=== PATIENT | male | born 1990 | race Caucasian/White ===

== ENCOUNTER → 2017-10-13 07:42 | Outpatient (CLI) | payer OTHER, SELFPAY ==
--- NOTE | 2017-10-13 07:47 | US_ITS ---
US abdomen complete HISTORY: Elevated liver enzymes ITS.REASON: ABNORMAL LIVER FUNCTION ORDERING PHYSICIAN: Ree Coleman PATIENT AGE: 26 years COMPARISON: None FINDINGS: PANCREAS:Unremarkable. No obvious mass or abnormal fluid collection. No ductal dilatation LIVER:No focal liver lesions demonstrated. Homogeneous echogenicity. No intrahepatic biliary ductal dilatation evident. There is appropriate directional blood flow within a nondilated portal vein. There is slight increased echogenicity of the liver which may represent hepatic steatosis. Common bile duct is normal at 4 mm. No intrahepatic biliary dilatation RIGHT KIDNEY:There are multiple right renal cysts measuring up to 4 cm in the upper pole. No hydronephrosis LEFT KIDNEY:Multiple left renal cyst consistent with polycystic kidney disease. No hydronephrosis GALLBLADDER:No gallstones, gallbladder wall thickening, pericholecystic fluid, or biliary dilatation. AORTA:No evidence of aneurysmal dilatation. SPLEEN:Borderline splenomegaly at 14 cm ASCITES:None demonstrated. IMPRESSION: 1. Borderline splenomegaly with mild fatty liver 2. Polycystic kidney disease 3. Otherwise negative abdominal ultrasound
[2017-10-13 09:23] LABS: Basophils # 0.1 K/mm3 (0-0.2); Basophils % 1.4 % (0.1-2.0); Eosinophils # 0.2 K/mm3 (0.0-0.4); Eosinophils % 3.9 % (0.1-12.0); Hematocrit 46.4 % (42.0-52.0); Hemoglobin 15.8 g/dL (14.1-18.0); Lymphocytes # 1.5 K/mm3 (0.7-4.5); Lymphocytes % 34.2 K/mm3 (10-50); Mean Corpuscular HGB Conc 34.2 g/dL (31.8-35.4); Mean Corpuscular Hemoglobin 30.2 pg (27.0-31.2); Mean Corpuscular Volume 88.5 fl (80-94); Mean Platelet Volume 8.4 fl (7.4-10.4); Monocytes # 0.2 K/mm3 (0.1-1.0); Monocytes % 5.4 % (1.7-9.3); Neutrophils # 2.5 K/mm3 (1.8-7.8); Neutrophils % 55.1 % (37.0-80.0); Platelet Count 195 K/mm3 (142-424); Red Blood Count 5.24 M/mm3 (4.60-6.20); Red Cell Distribution Width 12.7 % (11.5-17.5); White Blood Count 4.5 K/mm3 (4.8-10.8)
[2017-10-13 10:38] LABS: Alanine Aminotransferase 198 U/L (12-78); Albumin Level 4.2 gm/dL (3.4-5.0); Albumin/Globulin Ratio 1.5 (1.1-1.8); Alkaline Phosphatase 77 U/L (46-116); Anion Gap 12.5 mEq/L (5-15); Aspartate Amino Transferase 79 U/L (15-37); Bilirubin,Total 0.8 mg/dL (0.2-1.0); Blood Urea Nitrogen 17 mg/dL (7-18); Calcium 8.7 mg/dL (8.5-10.1); Carbon Dioxide 28 mmol/L (21.0-32.0); Chloride 108 mmol/L (98-107); Creatinine,Serum 0.93 mg/dL (0.70-1.30); Estimated Glomerular Filt Rate 99 ml/min (>60); Ferritin 381 ng/mL (8-388); GFR (African American) 120 ML/MIN (>60); Globulin 2.8 gm/dl (1.3-3.2); Glucose 99 mg/dL (74-106); Potassium 4.5 mmoL/L (3.5-5.1); Sodium 144 mmol/L (136-145)
[2017-10-14 08:21] LABS: Hep A Ab, IgM Negative (Negative); Hepatitis B Core Antibody IgM Negative (Negative); Hepatitis B Surface Antigen Negative (Negative); Iron 127 ug/dL (38-169); Iron Saturation 46 % (15-55); UIBC 151 ug/dL (111-343)
[2017-10-14 18:29] LABS: Hepatitis C Antibody <0.1 s/co ratio (0.0-0.9); Mitochondrial (M2) Antibody 29.4 Units (0.0-20.0)
[2017-10-17 08:29] LABS: Antinuclear Antibodies, IFA Negative (.); Liver-Kidney Microsomal Ab <1.0 Units (0.0-20.0)
== END ==
PROVIDERS: PCP Family Medicine; Visit Provider Nurse Practitioner Acute Care
DX: R94.5 Abnormal results of liver function studies (principal)
CPT/HCPCS: 36415; 76700; 80053; 80074; 82728; 83540; 83550; 85025; 86038; 86256; 86376

== ENCOUNTER → 2017-10-24 10:29 | Outpatient (CLI) | payer OTHER, SELFPAY ==
[2017-10-25 11:18] LABS: Ceruloplasmin 18.7 mg/dL (16.0-31.0)
[2017-10-27 07:19] LABS: ALT (SGPT) P5P 131 IU/L (0-55); Alpha 2-Macroglobulins, Qn 208 mg/dL (110-276); Apolipoprotein A-1 87 mg/dL (101-178); Bilirubin, Total 0.5 mg/dL (0.0-1.2); Fibrosis Score 0.32 (0.00-0.21); Fibrosis Stage F1-F2 (.); GGT 67 IU/L (0-65); Haptoglobin 120 mg/dL (34-200); Necroinflammat Activity Grade A3-Severe activity (.); Necroinflammat Activity Score 0.68 (0.00-0.17)
[2017-10-27 18:27] LABS: Actin (Smooth Muscle) Antibody 3 Units (0-19); Immunoglobulin G, Qn 866 mg/dL (700-1600)
[2017-10-27 18:28] LABS: Deamidated Gliadin Abs, IgA 73 units (0-19); Deamidated Gliadin Abs, IgG 103 units (0-19); Endomysial IgA Antibody Positive (Negative); Tissue Transglutaminase IgA Ab 4 U/mL (0-3); Tissue Transglutaminase IgG Ab <2 U/mL (0-5)
[2017-10-27 19:10] LABS: Reticulin IgA Antibody Negative titer (Neg:<1:2.5)
== END ==
PROVIDERS: PCP Family Medicine; Visit Provider Nurse Practitioner Acute Care
DX: R94.5 Abnormal results of liver function studies (principal)
CPT/HCPCS: 36415; 81256; 82390; 82784; 83516; 86255; 86256

== ENCOUNTER → 2017-12-25 10:16 | Outpatient (POV) | payer OTHER, SELFPAY | PROVIDERS: Visit Provider Nurse Practitioner Acute Care | DX: Z00.00 Encounter for general adult medical examination without abnormal findings (principal) ==

== ENCOUNTER 2019-11-27 13:05 | Emergency (ER) | payer OTHER, SELFPAY ==
[2019-11-27 13:25] VITALS: BP 163/85; PULSE 100; RESP 18; TEMP 36.7; O2SAT 98; BMI 26.9
--- NOTE | 2019-11-27 13:34 | HMH.EDUTC ---
[facility] [place] Disposition Clinical Impression: Sinusitis Qualifiers: Sinusitis location: unspecified location Chronicity: unspecified Qualified Code(s): J32.9 - Chronic sinusitis, unspecified Disposition: Home, Self-Care Condition on Discharge: Good Instructions: Sinusitis, Sinus Headache, DI for Sinusitis, Azithromycin, Methylprednisolone Additional Instructions: *Monitor Temp, Over the counter Motrin or Tylenol as directed/as needed Tylenol every 4 hours and Motrin every 6 hours (as long as your family doctor has told you that you can take it) for fever or pain. and straight to ER if unable to lower temp less than 101.0 after medication given *Warm salt water gargles may help to soothe the throat *Throat Lozenges *Warm fluids like tea with honey may help to soothe the throat *Sleep elevated *Humidifier/Vaporizer Follow up IMMEDIATELY for new or worsening symptoms or no Noticeable improvement over the next 48-72 hours. 911 for difficulty breathing or swallowing You was tested for today for COVID19 your test result should be back later this evening, you may call back later this evening to see if your test results are back and the result You was given a handout with instructions for Self Quarantine and Self isolation for while you wait on test results and what to do if they are positive Prescriptions: Fluticasone Propionate [Flonase 50mcg nasal spray 16gm] 1 spr NS DAILY #1 bottle Transmission Status: Pending to Stand In methylPREDNISolone [Medrol 4mg tab] 4 mg PO DIRECTED #21 tab Transmission Status: Pending to [facility] Azithromycin [Z-Du 250mg Tab] 250 mg PO DIRECTED #6 tab Transmission Status: Pending to Stand In Referrals: Leo Schumacher MD [Primary Care Provider] - As needed Forms: Work/School Release Time of Disposition: 13:39 Medical Decision Making - Aidan Inquiry Pt receiving controlled substance: No Aidan was queried for this patient: No Vital Signs: 11/27/19 13:25 Temperature 98.1 F Temperature Source Oral Pulse Rate [Radial] 100 H Respiratory Rate 18 Blood Pressure [Right Arm] 163/85 H Blood Pressure Mean [Right Arm] 111 Blood Pressure Source [Right Arm] Automatic Cuff Blood Pressure Position [Right Arm] Sitting 02 Sat by Pulse Oximetry 98 Oxygen Delivery Method Room Air Orders (Tests/Meds): ORDERS Category Date Time Status Full Resp Panel w/COVID ([facility]) Routine Lab 11/27/19 13:28 Ordered [facility] [place] HPI - General Stated complaint: congestion, lung pain Time Seen by Provider: 11/27/19 13:34 Mode of Arrival: Ambulatory Source of Information: Patient Limitations: No Limitations Description of Symptoms (Recalled from Triage Doc. by RN): wants covid test. HEENT Symptoms (Recalled from RN notes): No Resp Symptoms (Recalled from RN notes): No Skin Symptoms (Recalled from RN notes): No MS Symptoms (Recalled from RN notes): No Functional Status (Recalled from RN notes): wnl - History of Present Illness Provider Complaint: Patient states that he came in today to get a COVID test States that he has been having sinus pain and pressure for over a week and feels like it is trying to move into his chest States that feels like it did before when he had a sinus infection but has elderly aunt coming and wanted to make sure that he didnt have COVID - Related Data Home Medications Medication Instructions Recorded Confirmed lisinopril 5 mg tablet 5 mg PO DAILY 04/28/19 04/28/19 Previous Rx's Medication Instructions Recorded triamcinolone acetonide 0.5 % 1 applic TOPICAL BID 7 Days #15 g 04/28/19 topical cream Azithromycin [Z-Du 250mg Tab] 250 mg PO DIRECTED #6 tab 11/27/19 Fluticasone Propionate [Flonase 1 spr NS DAILY #1 bottle 11/27/19 50mcg nasal spray 16gm] methylPREDNISolone [Medrol 4mg 4 mg PO DIRECTED #21 tab 11/27/19 tab] Allergies Allergy/AdvReac Type Severity Reaction Status Date / Time INGREDIENT: NO KNOW
[2019-11-27 13:51] VITALS: BP 163/85; PULSE 100; RESP 18; TEMP 36.7; O2SAT 98
== END 2019-11-27 13:52 | disposition home or self-care (01) ==
PROVIDERS: Emergency Provider Nurse Practitioner; PCP Family Medicine
DX: J32.9 Chronic sinusitis, unspecified (principal); Z20.828 Contact with and (suspected) exposure to other viral communicable diseases; I10 Essential (primary) hypertension; F17.290 Nicotine dependence, other tobacco product, uncomplicated
CPT/HCPCS: 99201; U0003

== ENCOUNTER → 2020-01-03 16:01 | Outpatient (POV) | payer OTHER, SELFPAY | PROVIDERS: Visit Provider Internal Medicine Nephrology | DX: Z00.00 Encounter for general adult medical examination without abnormal findings (principal) ==

== ENCOUNTER → 2020-12-24 11:34 | Outpatient (CLI) | payer OTHER, SELFPAY | PROVIDERS: PCP Family Medicine; Visit Provider Nurse Practitioner | DX: Z20.822 Contact with and (suspected) exposure to COVID-19 (principal) | CPT/HCPCS: C9803; U0003; U0005 ==

== ENCOUNTER → 2021-01-04 08:19 | Outpatient (CLI) | payer OTHER, SELFPAY | PROVIDERS: PCP Family Medicine; Visit Provider Nurse Practitioner | DX: Z20.822 Contact with and (suspected) exposure to COVID-19 (principal) | CPT/HCPCS: C9803; U0003; U0005 ==

== ENCOUNTER → 2021-04-01 08:13 | Outpatient (CLI) | payer OTHER, SELFPAY | PROVIDERS: PCP Family Medicine; Visit Provider Nurse Practitioner | DX: Z20.822 Contact with and (suspected) exposure to COVID-19 (principal) | CPT/HCPCS: C9803; U0003; U0005 ==

== ENCOUNTER → 2021-07-02 13:41 | Outpatient (POV) | payer OTHER, SELFPAY | PROVIDERS: Visit Provider Internal Medicine Nephrology | DX: Z00.00 Encounter for general adult medical examination without abnormal findings (principal) ==

== ENCOUNTER 2021-09-21 08:00 | Emergency (ER) | payer OTHER, SELFPAY ==
[2021-09-21 08:10] VITALS: BP 128/76; PULSE 79; RESP 18; TEMP 36.7; O2SAT 99; BMI 31.7
--- NOTE | 2021-09-21 08:24 | HMH.EDUTC ---
[facility] [place] Clinical Impression: Poison sarah dermatitis Disposition: Home, Self-Care Condition on Discharge: Good Instructions: Summertime Rashes: Poison Sarah, [place], and [place], DI for Poison Sarah Allergy Additional Instructions: Oatmeal bathes may help with itching and to dry the rash Over the counter Benadryl may help with itching Return if needed Start oral steriods tomorrow Straight to ER if any life threatening symptoms Prescriptions: predniSONE [Prednisone 10mg Tab Dose-Pack] 10 mg PO UD DOSE PK 6 Days #21 tab Transmission Status: [facility] Referrals: Loe Schumacher MD [Primary Care Provider] - As needed Time of Disposition: 08:41 Medical Decision Making - Aidan Inquiry Pt receiving controlled substance: No Aidan was queried for this patient: No Vital Signs: 09/21/21 08:10 09/21/21 08:32 Temperature 98.1 F 98.1 F Temperature Source Oral Pulse Rate 79 Pulse Rate [Right Brachial] 79 Respiratory Rate 18 18 Blood Pressure 128/76 Blood Pressure [Right Arm] 128/76 Blood Pressure Mean [Right Arm] 93 Blood Pressure Source [Right Arm] Automatic Cuff Blood Pressure Position [Right Arm] Sitting 02 Sat by Pulse Oximetry 99 Oxygen Delivery Method Room Air Orders (Tests/Meds): ED MEDICATIONS Discontinued Medications Generic Name Dose Route Start Last Admin Trade Name Dylan PRN Reason Stop Dose Admin Methylprednisolone Sodium Succinate 125 mg 09/21/21 08:25 09/21/21 08:30 Methylprednisolone Sod Succ 125mg Vial IM 09/21/21 08:26 125 mg ONCE ONE Administration [facility] [place]PI - General Stated complaint: Possible poison sarah rash Time Seen by Provider: 09/21/21 08:15 Mode of Arrival: Ambulatory Source of Information: Patient Limitations: No Limitations Description of Symptoms (Recalled from Triage Doc. by RN): PATIENT C/O POISON SARAH ON ARMS AND LEGS X 1 WEEK HEENT Symptoms (Recalled from RN notes): No Resp Symptoms (Recalled from RN notes): No Skin Symptoms (Recalled from RN notes): Yes MS Symptoms (Recalled from RN notes): No Functional Status (Recalled from RN notes): WNL - History of Present Illness Provider Complaint: Patient states that he has poison sarah all over his upper legs, groin and private area and on both arms States that he was up most of the night itching like crazy and wasnt able to sleep so he came in to get something to help - Related Data Home Medications Medication Instructions Recorded Confirmed lisinopril 5 mg tablet 5 mg PO DAILY 04/28/19 09/21/21 Previous Rx's Medication Instructions Recorded predniSONE [Prednisone 10mg Tab 10 mg PO UD DOSE PK 6 Days #21 tab 09/21/21 Dose-Pack] Allergies Allergy/AdvReac Type Severity Reaction Status Date / Time No Known Allergies Allergy Verified 09/21/21 08:24 - Worker's Comp Is this a Worker's Comp case?: No [facility] History - Hepatitis A Screen Attestation statement:: This patient has been screened for Hepatitis A risk factors. I have reviewed the patient's past medical history: Yes Medical History: Reports:: Renal Disease Other Medical History: Reports: Liver Disease Other Surgeries: Yes: No Previous Surgery Amputation: No Fractures: No - Social History Smoking Status: Former smoker Tobacco Type: cigars Alcohol Intake: never Alcohol Intake Frequency:: holidays/special occasions only Substance Use Type: denies use Occupational Status: other Housing: house Household Members: spouse Family Hx:: Cancer, Hypertension Comment: HEART PROBLEMS ROS Obtained: Yes All systems reviewed & no additional complaints, Yes Systems reviewed as appropriate & no additional complaints - Eyes Eyes: Reports system reviewed and no additional complaints, except as docu - ENT Ears, Nose, Mouth, and Throat: Reports system reviewed and no additional complaints, except as docu - Cardiovascular Cardiovascular: Reports system reviewed and no additional complaints, exc
[2021-09-21 08:32] VITALS: BP 128/76; PULSE 79; RESP 18; TEMP 36.7; O2SAT 99
== END 2021-09-21 08:45 | disposition home or self-care (01) ==
PROVIDERS: Emergency Provider Nurse Practitioner; PCP Family Medicine
DX: L25.5 Unspecified contact dermatitis due to plants, except food (principal)
CPT/HCPCS: 96372; 99212; G0463

== ENCOUNTER 2022-07-22 08:06 | Emergency (ER) | payer OTHER, SELFPAY ==
[2022-07-22 08:07] VITALS: BP 176/100; PULSE 86; RESP 18; TEMP 36.7; O2SAT 98; BMI 28.8
--- NOTE | 2022-07-22 08:24 | EXP.UTC ---
Discharge Plan Disposition Patient Disposition: Home Health Service Condition: Good Prescriptions Prescriptions: New triamcinolone acetonide 0.1 % cream 1 applic topical BID PRN (Reason: itching) Qty: 30 0RF diphenhydramine HCl [Diphenhydramine HCl] 25 mg capsule 25 mg PO Q6HP PRN (Reason: Itching) Qty: 30 0RF methylprednisolone 4 mg Tablets,Dose Pack 4 mg PO DIRECTED Qty: 21 0RF No Action lisinopril 5 mg tablet 5 mg PO DAILY prednisone 10 MG tablets,dose pack 10 mg PO UD DOSE PK 6 Days Qty: 21 0RF Rx Instructions: taper pack Referrals Follow up/Referrals: Iain Best MD [Primary Care Provider] - See instructions Activity Restrictions/Add. Instructions Additional Instructions/Restrictions: Try to identify and avoid contact with the offending substance. Don't start the oral steroids until tomorrow. The diphenhydramine (benedryl) will make you drowsy, so don't drive or operate heavy machinery after taking it. Don't put the topical steroids (triamcinolone) on your face or your groin. Follow up with your regular doctor. GO TO THE ER FOR ANY WORSENING SYMPTOMS OR CONCERNS Clinical Impressions Clinical Impression: Poison dahlia dermatitis Instructions Patient Instructions: Contact Dermatitis, DI for Contact Dermatitis, DI for Poison Dahlia Allergy, Triamcinolone Topical, Diphenhydramine, Methylprednisolone Injection Discharge ED Provider: Dillon Macias [facility] [place] General Stated complaint: Possible poison dahlia rash Mode of Arrival: Ambulatory Source of Information: Patient Limitations: No Limitations Time Seen by Provider: 07/22/22 08:24 Description of Symptoms (Recalled from Triage Doc. by RN): Possible poison dahlia rash on his neck and in his private area for 3 days now. HEENT Symptoms (Recalled from RN notes): No Resp Symptoms (Recalled from RN notes): No Skin Symptoms (Recalled from RN notes): Yes MS Symptoms (Recalled from RN notes): No Functional Status (Recalled from RN notes): wnl History of Present Illness Provider Complaint: He states that for the past 3 days he has had an itchy rash on his bilateral arms, neck, face, and groin. Related Data Home Medications Medication Instructions Recorded Confirmed lisinopril 5 mg tablet 5 mg PO DAILY Hypertension 04/28/19 09/21/21 Previous Rx's Medication Instructions Recorded prednisone 10 mg tablets in a dose 10 mg PO UD DOSE PK 6 days #21 tabs 09/21/21 pack diphenhydramine HCl 25 mg capsule 25 mg PO Q6HP PRN Itching #30 caps 07/22/22 methylprednisolone 4 mg tablets in 4 mg PO DIRECTED #21 tabs 07/22/22 a dose pack triamcinolone acetonide 0.1 % 1 applic topical BID PRN itching 07/22/22 topical cream #30 grams Allergies Allergy/AdvReac Type Severity Reaction Status Date / Time No Known Allergies Allergy Verified 09/21/21 08:24 Worker's Comp Is this a Worker's Comp case?: No [facility] Disclaimer: The information contained in this section may have been updated after the patient was seen, as this information can be updated by other users. Social History Smoking Status: Former smoker alcohol intake: never substance use type: denies use current occupational status: other Travel in the last 8 weeks: None household members: spouse housing: house ROS Obtained: Yes All systems reviewed & no additional complaints except as documented Constitutional Constitutional: Denies chills and Denies fever(s) Eyes Eyes: Denies eye discharge ENT Ears, Nose, Mouth, and Throat: Denies dizziness, Denies otalgia and Denies sore throat Cardiovascular Cardiovascular: Denies chest pain Respiratory Respiratory: Denies shortness of breath, Denies chest congestion, Denies cough, Denies stridor and Denies wheezing Gastrointestinal Gastrointestingal: Denies nausea or vomiting Musculoskeletal Musculoskeletal: Reports system reviewed and no additional co
[2022-07-22 08:50] VITALS: BP 176/100; PULSE 86; RESP 18; TEMP 36.7; O2SAT 98
== END 2022-07-22 08:53 | disposition home health service (06) ==
PROVIDERS: Emergency Provider Nurse Practitioner Family; PCP Family Medicine
DX: L23.7 Allergic contact dermatitis due to plants, except food (principal); W60.XXXA Contact with nonvenomous plant thorns and spines and sharp leaves, initial encounter
CPT/HCPCS: 96372; 99212; 99214; G0463

== ENCOUNTER 2024-02-29 18:48 | Emergency (ER) | payer BC, SELFPAY ==
[2024-02-29] VITALS (17 sets, daily range): BP systolic 115–185; BP diastolic 74–113; PULSE 93–128; RESP 16–20; TEMP 36.6–36.9; O2SAT 97–100; BMI 26.9
--- NOTE | 2024-02-29 19:02 | ED_ITS ---
Discharge Plan Disposition Patient Disposition: Xfer Short-Term Hosp Condition: Serious Prescriptions Prescriptions: No Action lisinopril 5 mg tablet 5 mg PO DAILY prednisone 10 MG tablets,dose pack 10 mg PO UD DOSE PK 6 Days Qty: 21 0RF Rx Instructions: taper pack triamcinolone acetonide 0.1 % cream 1 applic topical BID PRN (Reason: itching) Qty: 30 0RF diphenhydramine HCl [Diphenhydramine HCl] 25 mg capsule 25 mg PO Q6HP PRN (Reason: Itching) Qty: 30 0RF methylprednisolone 4 mg Tablets,Dose Pack 4 mg PO DIRECTED Qty: 21 0RF Referrals Follow up/Referrals: Leo Troncoso MD [Primary Care Provider] - See instructions Activity Restrictions/Add. Instructions Additional Instructions/Restrictions: Transfer to [facility] of Dr. Lara Clinical Impressions Clinical Impression: Traumatic brain injury Qualifiers: Encounter type: initial encounter Loss of consciousness presence/duration: u nknown LOC status Qualified Code(s): S06.9XAA - Unspecified intracranial injury with loss of consciousness status unknown, initial encounter Stand Alone Forms Stand Alone Forms: Transfer Record - ED Print Language Print Language: Upper Sorbian Discharge ED Provider: Pool Og General Adult HPI <AVA Daniel - Last Filed: 02/29/24 21:36> General Chief complaint: Fall Stated complaint: AO 02/29/24 1830 Fell hit head,can not remember Time Seen by Provider: 02/29/24 19:02 Mode of Arrival: Ambulatory Source of Information: Patient and Parent(s) Limitations: Altered Mental Status Description of Symptoms (Recalled from ER Triage Doc. by RN): fell and hit the back of his head on ice. trouble with recall and memory. History of Present Illness HPI narrative: Patient presents for evaluation of a fall. 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 He did not lose consciousness according to his father who was at the scene but patient immediately was confused. He was able to however get up under his own power and was brought to the ER by his father. Since the accident he is amnestic of events and is having short-term memory issues. This happened approximately 30 minutes prior to arrival. Currently patient reports that he has a posterior tenderness around the occiput but denies any nausea vomiting diarrhea loss of vision or change in vision loss in level of consciousness. He denies any neck pain back pain or any other injury. He was ambulating to the ER without focal neurologic deficits. Related Data Home Medications ?Medication ?Instructions ?Recorded ?Confirmed lisinopril 5 mg tablet 5 mg PO DAILY Hypertension 04/28/19 09/21/21 Previous Rx's ?Medication ?Instructions ?Recorded prednisone 10 mg tablets in a dose 10 mg PO UD DOSE PK 6 days #21 tabs 09/21/21 pack diphenhydramine HCl 25 mg capsule 25 mg PO Q6HP PRN Itching #30 caps 07/22/22 methylprednisolone 4 mg tablets in 4 mg PO DIRECTED #21 tabs 07/22/22 a dose pack triamcinolone acetonide 0.1 % 1 applic topical BID PRN itching 07/22/22 topical cream #30 grams Allergies Allergy/AdvReac Type Severity Reaction Status Date / Time No Known Allergies Allergy Verified 09/21/21 08:24 [facility] <AVA Daniel - Last Filed: 02/29/24 21:36> [facility] Disclaimer: The information contained in this section may have been updated after the patient was seen, as this information can be updated by other users. Social History Smoking Status: Never smoker alcohol intake: never substance use type: denies use current occupational status: other Travel in the last 8 weeks: None household members: spouse housing: house Have you lived/traveled outside US in past 30 days?: No Contact w/someone who lives/traveled outside US past 30 days?: No Exposure to someone with infectious disease in past 14 days?: No Do you have a fever (greater than 100.4 F or 38 C)?: No Have you tested positive for COVID-19: No Exposed to someone with COVID-19 in past 14 days?: No Do you have a sore throat?: No Do you have a cough?: No Do you have any weakness?: No Do you have any diarrhea?: No Are you experiencing any unusual bleeding?: No Do you have any muscle aches/pain?: No Do you have any abdominal pain?: No Are you experiencing loss of taste or smell?: No Other Medical History Have you received the Pneumonia Vaccine: No <AVA Daniel - Last Filed: 02/29/24 21:36> ROS Obtained: Yes Systems reviewed as appropriate & no additional complaints except as documented Physical Exam <AVA Daniel - Last Filed: 02/29/24 21:36> General General appearance: alert Respiratory Respiratory exam: Present normal lung sounds bilaterally Cardiovascular Cardiovascular exam: Present regular rate Abdominal Exam Abdominal exam: Absent normal bowel sounds Neurological Exam Neurological exam: Present alert, CN II-XII intact and normal gait; Absent oriented X3 (Patient having short-term memory loss cannot remember things for more than 2 minutes is amnestic of events.) or motor sensory deficit Medical Decision Making <AVA Daniel - Last Filed: 02/29/24 21:36> Medical Records Medical records reviewed: Yes I reviewed the patient's medical records. Screening: Per USPSTF and CDC recommendations, given the prevalence of disease in our region, it is our hospital?s policy to screen for HIV and viral Hepatitis for all patients aged 18 and over and those with ongoing risk factors. Aidan Inquiry Pt receiving controlled substance: No Vital Signs: 02/29/24 18:51 02/29/24 19:01 02/29/24 19:30 Temperature 98.4 F Temperature Source Oral Pulse Rate 93 H 106 H Pulse Rate [Right] 120 H Respiratory Rate 20 16 16 Blood Pressure 185/113 H 171/88 H Blood Pressure [Right Arm] 174/107 H Blood Pressure Mean [Right Arm] 129 Blood Pressure Source Blood Pressure Source [Right Arm] Blood Pressure Position Blood Pressure Position [Right Arm] 02 Sat by Pulse Oximetry 99 100 100 Oxygen Delivery Method Room Air Room Air Room Air 02/29/24 19:47 02/29/24 19:54 02/29/24 20:00 Temperature 97.9 F Temperature Source Oral Pulse Rate 123 H 115 H Pulse Rate [Right] 106 H Respiratory Rate 16 Blood Pressure 169/107 H Blood Pressure [Right Arm] 170/88 H Blood Pressure Mean [Right Arm] 115 Blood Pressure Source Blood Pressure Source [Right Arm] Manual Cuff/ Auscultation Blood Pressure Position Blood Pressure Position [Right Arm] Supine 02 Sat by Pulse Oximetry 98 100 100 Oxygen Delivery Method Room Air 02/29/24 20:30 02/29/24 20:45 02/29/24 21:00 Temperature Temperature Source Pulse Rate 112 H 128 H 111 H Pulse Rate [Right] Respiratory Rate Blood Pressure 156/74 H 140/78 Blood Pressure [Right Arm] Blood Pressure Mean [Right Arm] Blood Pressure Source Blood Pressure Source [Right Arm] Blood Pressure Position Blood Pressure Position [Right Arm] 02 Sat by Pulse Oximetry 99 99 99 Oxygen Delivery Method 02/29/24 21:30 02/29/24 21:45 02/29/24 21:47 Temperature 97.9 F Temperature Source Oral Pulse Rate 111 H 123 H 116 H Pulse Rate [Right] Respiratory Rate 16 Blood Pressure 146/82 H 146/82 H Blood Pressure [Right Arm] Blood Pressure Mean [Right Arm] Blood Pressure Source Manual Cuff/ Auscultation Blood Pressure Source [Right Arm] Blood Pressure Position Supine Blood Pressure Position [Right Arm] 02 Sat by Pulse Oximetry 99 98 Oxygen Delivery Method Room Air Lab Data Lab results reviewed: Yes I reviewed the patient's lab results. Lab Results 02/29/24 19:09: WBC 7.3, RBC 5.17, Hgb 15.8, Hct 44.9, MCV 86.8, MCH 30.6, MCHC 35.2, RDW 12.3, Plt Count 217, MPV 10.7 H, Neut % (Auto) 46.2, Lymph % (Auto) 41.9, Summit % (Auto) 7.0, Eos % (Auto) 3.4, Baso % (Auto) 1.2, Neut # (Auto) 3.4, Lymph # (Auto) 3.1, Summit # (Auto) 0.5, Eos # (Auto) 0.3, Baso # (Auto) 0.1, Sodium 141, Potassium 3.8, Chloride 104, Carbon Dioxide 25, Anion Gap 15.8 H, B UN 29 H, Creatinine 1.40 H, Estimated Creat Clear 102, Estimated GFR 59, Est GFR ( Amer) 71, Glucose 111 H, Calcium 9.6, Total Bilirubin 0.6, AST 60 H, A LT 106 H, Alkaline Phosphatase 55, Total Protein 7.2, Albumin 5.0, Globulin 2.2, Albumin/Globulin Ratio 2.3 H, HCV Ab DIANNE w/Rflx PCR Qn Negative, HIV Ag/Ab Combo Qual Negative 02/29/24 19:09 02/29/24 19:09 Orders (Tests/Meds): ED MEDICATIONS Discontinued Medications Generic Name Dose Route Start Last Admin Trade Name Dylan PRN Reason Stop Dose Admin Iopamidol 80 ml 02/29/24 19:19 02/29/24 19:22 Iopamidol-370 (76%);100ml Bottle IV 02/29/24 19:20 80 ml ONCE ONE Administration Sodium Chloride 50 ml 02/29/24 19:19 02/29/24 19:20 0.9 % Sodium Chloride 50 Ml Vial IV 02/29/24 19:20 50 ml ONCE ONE Administration Sodium Chloride 10 ml 02/29/24 19:19 02/29/24 19:21 Sodium Chloride 0.9% 10ml Syr (Rad Only) IV 02/29/24 19:20 10 ml ONCE ONE Administration ORDERS Category Date Time Status CT angio head Stat Cat Scan 02/29/24 19:[address] angio neck Stat Cat Scan 02/29/24 19:[address] cervical spine wo con Stat Cat Scan 02/29/24 19:[address] head/brain wo con Stat Cat Scan 02/29/24 19:06 Completed CBC w/Auto Diff [Complete Blood Count Auto Diff] Stat Lab 02/29/24 19:09 Completed CMP [Comprehensive Metabolic Panel] Stat Lab 02/29/24 19:09 Completed HIV Combo Stat Lab 02/29/24 19:09 Completed Hepatitis C Ab Qual. W/ RFX Stat Lab 02/29/24 19:09 Completed Medical Decision Narrative: In summary patient is a 33-year-old male who presents to the emergency department for evaluation of fall and head injury. Patient is initially hypertensive at 174/107 tachycardic at 120 breathing 20 times a minute satting at 99% room air with a temperature of 98.4 upon arrival. Physical exam is remarkable for tenderness around the occiput but no palpable bony deformity. There is no obvious hematoma contusions abrasions lacerations. There is no midline C-spine tenderness there is no neck tenderness there is no dorsal spine tenderness. Pupils are equal round reactive to light. There is no nystagmus. NIH stroke score 0. Patient is awake and interactive however he has short-term memory issues. He can name his sister and his father but could not not tell me recent events such as being in his sister's wedding a week ago that his is 9 months nor can he recall my name 2 minutes after I both show him and tell him.. Differential diagnosis includes Mattock brain injury versus skull fracture versus intracranial bleed versus C-spine injury etc. Initial workup will be conducted with trauma alert with CT scan of the head without contrast CTA of the head and neck cervical spine films. Initial interventions include frequent neurologic checks for now. Initial workup reviewed by me shows that his hematologic labs are nonactionable and my informal interpretation of all of his CT imaging shows no evidence of acute intracranial injury or vascular injury prior to radiology read. Upon repeat evaluation patient is still oriented person and place but not circumstance. Patient is still having amnesia.. Given this had interactive discussion with the [facility] transfer center regarding ESCAMILLA and findings and patient management and patient has been accepted to the [facility] emergency department care of Dr. Lara for further evaluation and care. However we have transportation issues and given that the patient has significant trauma with amnesia the patient was placed in observation status at 2013. Medical necessity for observational status is neurologic checks until transport. The patient was provided serial reevaluations continuous cardiac monitoring and pulse oximetry while awaiting results. Care was transferred to Dr. Og at 2100 hrs. prior to transport. <Pool Og MD - Last Filed: 02/29/24 22:21> Vital Signs: 02/29/24 18:51 02/29/24 19:01 02/29/24 19:30 Temperature 98.4 F Temperature Source Oral Pulse Rate 93 H 106 H Pulse Rate [Right] 120 H Respiratory Rate 20 16 16 Blood Pressure 185/113 H 171/88 H Blood Pressure [Right Arm] 174/107 H Blood Pressure Mean [Right Arm] 129 Blood Pressure Source Blood Pressure Source [Right Arm] Blood Pressure Position Blood Pressure Position [Right Arm] 02 Sat by Pulse Oximetry 99 100 100 Oxygen Delivery Method Room Air Room Air Room Air 02/29/24 19:47 02/29/24 19:54 02/29/24 20:00 Temperature 97.9 F Temperature Source Oral Pulse Rate 123 H 115 H Pulse Rate [Right] 106 H Respiratory Rate 16 Blood Pressure 169/107 H Blood Pressure [Right Arm] 170/88 H Blood Pressure Mean [Right Arm] 115 Blood Pressure Source Blood Pressure Source [Right Arm] Manual Cuff/ Auscultation Blood Pressure Position Blood Pressure Position [Right Arm] Supine 02 Sat by Pulse Oximetry 98 100 100 Oxygen Delivery Method Room Air 02/29/24 20:30 02/29/24 20:45 02/29/24 21:00 Temperature Temperature Source Pulse Rate 112 H 128 H 111 H Pulse Rate [Right] Respiratory Rate Blood Pressure 156/74 H 140/78 Blood Pressure [Right Arm] Blood Pressure Mean [Right Arm] Blood Pressure Source Blood Pressure Source [Right Arm] Blood Pressure Position Blood Pressure Position [Right Arm] 02 Sat by Pulse Oximetry 99 99 99 Oxygen Delivery Method 02/29/24 21:30 02/29/24 21:45 02/29/24 21:47 Temperature 97.9 F Temperature Source Oral Pulse Rate 111 H 123 H 116 H Pulse Rate [Right] Respiratory Rate 16 Blood Pressure 146/82 H 146/82 H Blood Pressure [Right Arm] Blood Pressure Mean [Right Arm] Blood Pressure Source Manual Cuff/ Auscultation Blood Pressure Source [Right Arm] Blood Pressure Position Supine Blood Pressure Position [Right Arm] 02 Sat by Pulse Oximetry 99 98 Oxygen Delivery Method Room Air Lab Data Lab Results 02/29/24 19:09: WBC 7.3, RBC 5.17, Hgb 15.8, Hct 44.9, MCV 86.8, MCH 30.6, MCHC 35.2, RDW 12.3, Plt Count 217, MPV 10.7 H, Neut % (Auto) 46.2, Lymph % (Auto) 41.9, Summit % (Auto) 7.0, Eos % (Auto) 3.4, Baso % (Auto) 1.2, Neut # (Auto) 3.4, Lymph # (Auto) 3.1, Summit # (Auto) 0.5, Eos # (Auto) 0.3, Baso # (Auto) 0.1, Sodium 141, Potassium 3.8, Chloride 104, Carbon Dioxide 25, Anion Gap 15.8 H, B UN 29 H, Creatinine 1.40 H, Estimated Creat Clear 102, Estimated GFR 59, Est GFR ( Amer) 71, Glucose 111 H, Calcium 9.6, Total Bilirubin 0.6, AST 60 H, A LT 106 H, Alkaline Phosphatase 55, Total Protein 7.2, Albumin 5.0, Globulin 2.2, Albumin/Globulin Ratio 2.3 H, HCV Ab DIANNE w/Rflx PCR Qn Negative, HIV Ag/Ab Combo Qual Negative Orders (Tests/Meds): ED MEDICATIONS Discontinued Medications Generic Name Dose Route Start Last Admin Trade Name Dylan PRN Reason Stop Dose Admin Iopamidol 80 ml 02/29/24 19:19 02/29/24 19:22 Iopamidol-370 (76%);100ml Bottle IV 02/29/24 19:20 80 ml ONCE ONE Administration Sodium Chloride 50 ml 02/29/24 19:19 02/29/24 19:20 0.9 % Sodium Chloride 50 Ml Vial IV 02/29/24 19:20 50 ml ONCE ONE Administration Sodium Chloride 10 ml 02/29/24 19:19 02/29/24 19:21 Sodium Chloride 0.9% 10ml Syr (Rad Only) IV 02/29/24 19:20 10 ml ONCE ONE Administration ORDERS Category Date Time Status CT angio head Stat Cat Scan 02/29/24 19:[address] angio neck Stat Cat Scan 02/29/24 19:[address] cervical spine wo con Stat Cat Scan 02/29/24 19:[address] head/brain wo con Stat Cat Scan 02/29/24 19:06 Completed CBC w/Auto Diff [Complete Blood Count Auto Diff] Stat Lab 02/29/24 19:09 Completed CMP [Comprehensive Metabolic Panel] Stat Lab 02/29/24 19:09 Completed HIV Combo Stat Lab 02/29/24 19:09 Completed Hepatitis C Ab Qual. W/ RFX Stat Lab 02/29/24 19:09 Completed ECG Data Tracing #1: I reviewed this ECG and interpreted as documented below: (This tachycardia, no obvious acute ischemic change. SC 184, QRS 95, QTc 426 with normal axis) Medical Decision Narrative: In summary patient is a 33-year-old male who presents to the emergency department for evaluation of fall and head injury. Patient is initially hypertensive at 174/107 tachycardic at 120 breathing 20 times a minute satting at 99% room air with a temperature of 98.4 upon arrival. Physical exam is remarkable for tenderness around the occiput but no palpable bony deformity. There is no obvious hematoma contusions abrasions lacerations. There is no midline C-spine tenderness there is no neck tenderness there is no dorsal spine tenderness. Pupils are equal round reactive to light. There is no nystagmus. NIH stroke score 0. Patient is awake and interactive however he has short-term memory issues. He can name his sister and his father but could not not tell me recent events such as being in his sister's wedding a week ago that his is 9 months nor can he recall my name 2 minutes after I both show him and tell him.. Differential diagnosis includes Mattock brain injury versus skull fracture versus intracranial bleed versus C-spine injury etc. Initial workup will be conducted with trauma alert with CT scan of the head without contrast CTA of the head and neck cervical spine films. Initial interventions include frequent neurologic checks for now. Initial workup reviewed by me shows that his hematologic labs are nonactionable and my informal interpretation of all of his CT imaging shows no evidence of acute intracranial injury or vascular injury prior to radiology read. Upon repeat evaluation patient is still oriented person and place but not circumstance. Patient is still having amnesia.. Given this had interactive discussion with the [facility] transfer center regarding ESCAMILLA and findings and patient management and patient has been accepted to the [facility] emergency department care of Dr. Lara for further evaluation and care. However we have transportation issues and given that the patient has significant trauma with amnesia the patient was placed in observation status at 2013. Medical necessity for observational status is neurologic checks until transport. The patient was provided serial reevaluations continuous cardiac monitoring and pulse oximetry while awaiting results. Care was transferred to Dr. Og at 2100 hrs. prior to transport. I was consulted by the BEN, and we discussed the complexity of the problems being addressed. I approved the treatment and management plan for this patient's care in the Emergency Department, thus performing a substantive portion of the medical decision making. Patient with critical neurologic injury, mild to moderate TBI in the setting of concussion with no intracranial hemorrhage or structural abnormality. Pool Og MD Critical Care <AVA Daniel - Last Filed: 02/29/24 21:36> Critical Care Time Critical Care Time: No <Pool Og MD - Last Filed: 02/29/24 22:21> Critical Care Time Critical Care Time: Yes (neruologic) Attestation: On 02/29/24, the high probability of a clinically significant, sudden or life threatening deterioration of the following system(s) required my full and direct attention, intervention and personal management. The time I documented below is in addition to time spent performing reported procedures but includes the following listed in this critical care notation. Total Time Total Critical Care Time: 35
--- NOTE | 2024-02-29 19:03 | CT_ITS ---
PROCEDURE INFORMATION: Exam: CTA Head With Contrast, Arteriography Exam date and time: 02/29/2024 7:20 PM Age: 33 years old Clinical indication: Injury or trauma TECHNIQUE: Imaging protocol: Computed tomographic angiography of the head with contrast. Exam focused on the arteries. 3D rendering (Not supervised by radiologist): MIP and/or 3D reconstructed images were created by the technologist. Radiation optimization: All CT scans at this facility use at least one of these dose optimization techniques: automated exposure control; mA and/or kV adjustment per patient size (includes targeted exams where dose is matched to clinical indication); or iterative reconstruction. Contrast material: ISO 370; Contrast volume: 80 ml; Contrast route: INTRAVENOUS (IV); COMPARISON: CT HEAD/BRAIN WO CON 02/29/2024 7:15 PM FINDINGS: ANTERIOR CIRCULATION: Right internal carotid artery: Intracranial segment is patent with no significant stenosis. No aneurysm. Right middle cerebral artery: No occlusion or significant stenosis. No aneurysm. Right anterior cerebral artery: No occlusion or significant stenosis. No aneurysm. Left internal carotid artery: Intracranial segment is patent with no significant stenosis. No aneurysm. Left middle cerebral artery: No occlusion or significant stenosis. No aneurysm. Left anterior cerebral artery: No occlusion or significant stenosis. No aneurysm. POSTERIOR CIRCULATION: Right vertebral artery: No occlusion or significant stenosis. No aneurysm. Left vertebral artery: No occlusion or significant stenosis. No aneurysm. Basilar artery: No occlusion or significant stenosis. No aneurysm. Right posterior cerebral artery: No occlusion or significant stenosis. No aneurysm. Left posterior cerebral artery: No occlusion or significant stenosis. No aneurysm. IMPRESSION: No acute vascular pathology.
--- NOTE | 2024-02-29 19:03 | CT_ITS ---
PROCEDURE INFORMATION: Exam: CTA Neck With Contrast Exam date and time: 02/29/2024 7:20 PM Age: 33 years old Clinical indication: Injury or trauma TECHNIQUE: Imaging protocol: Computed tomographic angiography of the neck with contrast. Exam focused on the cervical segments of the vasculature. 3D rendering (Not supervised by radiologist): MIP and/or 3D reconstructed images were created by the technologist. Radiation optimization: All CT scans at this facility use at least one of these dose optimization techniques: automated exposure control; mA and/or kV adjustment per patient size (includes targeted exams where dose is matched to clinical indication); or iterative reconstruction. Contrast material: ISO 370; Contrast volume: 80 ml; Contrast route: INTRAVENOUS (IV); COMPARISON: CT CERVICAL SPINE WO CON 02/29/2024 7:18 PM FINDINGS: Right common carotid artery: No stenosis. No dissection or occlusion. Right internal carotid artery: No stenosis of the extracranial segment. No dissection or occlusion. Right external carotid artery: No occlusion or stenosis of the origin. Left common carotid artery: No stenosis. No dissection or occlusion. Left internal carotid artery: No stenosis of the extracranial segment. No dissection or occlusion. Left external carotid artery: No occlusion or stenosis of the origin. Right vertebral artery: No stenosis. No dissection or occlusion. Left vertebral artery: No stenosis. No dissection or occlusion. Soft tissues: Normal. No significant soft tissue swelling. Bones/joints: No acute fracture. IMPRESSION: No acute vascular pathology. REFERENCES: NASCET CRITERIA. The degree of stenosis in the cervical segment of the internal carotid artery is based on NASCET criteria. Normal is no stenosis. Mild is less than 50% stenosis. Moderate is 50-69% stenosis. Severe is 70% to 99% stenosis. Total occlusion is no detectable patent lumen.
--- NOTE | 2024-02-29 19:05 | CT_ITS ---
PROCEDURE INFORMATION: Exam: CT Cervical Spine Without Contrast Exam date and time: 02/29/2024 7:18 PM Age: 33 years old Clinical indication: Injury or trauma TECHNIQUE: Imaging protocol: Computed tomography of the cervical spine without contrast. Radiation optimization: All CT scans at this facility use at least one of these dose optimization techniques: automated exposure control; mA and/or kV adjustment per patient size (includes targeted exams where dose is matched to clinical indication); or iterative reconstruction. COMPARISON: CT HEAD/BRAIN WO CON 02/29/2024 7:15 PM FINDINGS: Bones: Nonspecific straightening. Vertebral body height and AP alignment is preserved. No acute cervical spine fracture. No definite significant central canal stenosis within limitations of technique. Lungs: Lung apices are normal. Pleural spaces: No visible pneumothorax. Soft tissues: Unremarkable. IMPRESSION: No acute cervical spine fracture.
--- NOTE | 2024-02-29 19:06 | CT_ITS ---
PROCEDURE INFORMATION: Exam: CT Head Without Contrast Exam date and time: 02/29/2024 7:15 PM Age: 33 years old Clinical indication: Injury or trauma TECHNIQUE: Imaging protocol: Computed tomography of the head without contrast. Radiation optimization: All CT scans at this facility use at least one of these dose optimization techniques: automated exposure control; mA and/or kV adjustment per patient size (includes targeted exams where dose is matched to clinical indication); or iterative reconstruction. COMPARISON: No relevant prior studies available. FINDINGS: Brain: Arachnoid cyst at the left middle cranial fossa measures 3.2 x 1.5 cm. Local mass effect without midline shift or edema. No acute intracranial hemorrhage. Cerebral ventricles: No obstructive hydrocephalus. Paranasal sinuses: Polypoid mucosal disease involving the bilateral maxillary sinuses. Mastoid air cells: Visualized mastoid air cells are well aerated. Bones: Unremarkable. No acute fracture. Soft tissues: Unremarkable. IMPRESSION: 1. No acute intracranial abnormality. 2. Arachnoid cyst at the left middle cranial fossa measures 3.2 x 1.5 cm. No complicating features.
--- NOTE | 2024-02-29 19:14 | PC.NURSE ---
Pt. to CT.
[2024-02-29 19:17] LABS: Basophils # 0.1 K/mm3 (0-0.2); Basophils % 1.2 % (0.1-2.0); Eosinophils # 0.3 K/mm3 (0.0-0.4); Eosinophils % 3.4 % (0.1-12.0); Hematocrit 44.9 % (42.0-52.0); Hemoglobin 15.8 g/dL (14.1-18.0); Lymphocytes # 3.1 K/mm3 (0.7-4.5); Lymphocytes % 41.9 % (10-50); Mean Corpuscular HGB Conc 35.2 g/dL (31.8-35.4); Mean Corpuscular Hemoglobin 30.6 pg (27.0-31.2); Mean Corpuscular Volume 86.8 fl (80-94); Mean Platelet Volume 10.7 fl (7.4-10.4); Monocytes # 0.5 K/mm3 (0.1-1.0); Neutrophils # 3.4 K/mm3 (1.8-7.8); Neutrophils % 46.2 % (37.0-80.0); Platelet Count 217 K/mm3 (142-424); Red Blood Count 5.17 M/mm3 (4.60-6.20); Red Cell Distribution Width 12.3 % (11.5-17.5); White Blood Count 7.3 K/mm3 (4.8-10.8)
[2024-02-29] MEDS: 0.9 % SODIUM CHLORIDE 50 ML VIAL IV (19:20)
[2024-02-29] MEDS: SODIUM CHLORIDE 0.9% 10ML SYR (RAD ONLY) 10 ML IV (19:21)
[2024-02-29] MEDS: IOPAMIDOL-370 (76%);100ML BOTTLE 80 ML IV (19:22)
[2024-02-29 19:28] LABS: Alanine Aminotransferase 106 U/L (12-78); Albumin/Globulin Ratio 2.3 (1.1-1.8); Alkaline Phosphatase 55 U/L (38-126); Anion Gap 15.8 mEq/L (5-15); Aspartate Amino Transferase 60 U/L (17-59); Bilirubin,Total 0.6 mg/dl (0.2-1.3); Blood Urea Nitrogen 29 mg/dl (9-20); Calcium 9.6 mg/dl (8.4-10.2); Carbon Dioxide 25 mmol/L (22.0-30.0); Chloride 104 mmol/L (98-107); Creatinine Clearance Estimated 102 mL/min (50-200); Estimated Glomerular Filt Rate 59 ml/min (>60); GFR (African American) 71 ML/MIN (>60); Globulin 2.2 g/dL (1.3-3.2); Glucose 111 mg/dl (74-100); Potassium 3.8 mmoL/L (3.5-5.1); Sodium 141 mmol/L (136-145); Total Protein,Serum 7.2 g/dl (6.3-8.2)
--- NOTE | 2024-02-29 19:45 | ECG_ITS ---
APPROVED REPORT Exam: Resting ECG HR:107 bpm ECG Measurements Heart Rate 107 AXES VA 184 P 59 QRSd 95 QRS 51 QT 363 T 67 QTc 426 Conclusion SINUS TACHYCARDIA NONSPECIFIC T-WAVE ABNORMALITY ABNORMAL RHYTHM ECG Electronically signed by : WILMAR AGUIRRE, 03/04/2024 22:16:32
--- NOTE | 2024-02-29 20:00 | PC.NURSE ---
Pt evaluated by hospitalist and transfer will be required
--- NOTE | 2024-02-29 20:07 | PC.NURSE ---
Contacted [facility] regarding transfer, they will be calling back.
[2024-02-29 20:29] LABS: HIV Combo NEGATIVE (Negative)
[2024-02-29 20:37] LABS: Hepatitis C Ab Qual. W/ RFX NEGATIVE (Negative)
[2024-03-01] VITALS: BP 136/86; PULSE 107; O2SAT 100
[2024-03-01 00:31] VITALS: BP 154/94; PULSE 106; O2SAT 100
--- NOTE | 2024-03-01 01:00 | PC.NURSE ---
[facility] here to transport patient via stretcher to
== END 2024-03-01 01:13 | disposition short-term general hospital (02) ==
PROVIDERS: Physician Assistant; Emergency Provider Emergency Medicine; PCP Internal Medicine Adolescent Medicine
DX: S06.9XAA Unspecified intracranial injury with loss of consciousness status unknown, initial encounter (principal); R41.82 Altered mental status, unspecified; R41.3 Other amnesia; M54.81 Occipital neuralgia; W00.0XXA Fall on same level due to ice and snow, initial encounter; Y93.89 Activity, other specified; Y92.61 Building [any] under construction as the place of occurrence of the external cause
CPT/HCPCS: 70450; 70496; 70498; 72125; 80053; 85025; 86803; 87389; 93005; 99291; Q9967